=== PATIENT | female | born 1935 | race Caucasian/White ===

== ENCOUNTER 2018-09-19 12:19 | Outpatient (CLI) | payer MEDICARE, OTHER, SELFPAY ==
[2018-09-19] VITALS (7 sets, daily range): BP systolic 148–164; BP diastolic 61–90; PULSE 89–106; RESP 18–20; TEMP 36.9; O2SAT 96–100
--- NOTE | 2018-09-19 12:25 | DI.RAD.S_ITS ---
PROCEDURE: PAIN SI JOINT INJECTION INDICATIONS: SACROCOCCYGEAL DISORDER FINDINGS: Fluoroscopic spot filming was performed to verify placement of spinal needles at the right sacroiliac joint level(s), as labeled on the films. Appropriate location(s) of the needle tip(s) was confirmed by injection of iodinated contrast. Dictated by: Dante Belcher M.D. on 09/19/2018 at 14:48 Approved by: Dante Belcher M.D. on 09/19/2018 at 14:49
--- NOTE | 2018-09-19 13:04 | CM.MNRNOTE ---
pt refusing iv start, reassured, pt aggreed. voided before procedure. glucose checked 277. pt reporting eating at 1030am. pt arrived with bottle of colored water, and report sipping due to dm. rn and provider made aware.
--- NOTE | 2018-09-19 13:10 | PC.NURSE ---
pt reports, seen at the clinic yesterday for scratch on left lower ext. treated with antibiotic, pt denies fever,chills.
--- NOTE | 2018-09-19 13:43 | PC.NURSE ---
to procedure room via w/c. voided before procedure.
[2018-09-19] MEDS: MIDAZOLAM 5 MG/5 ML VIAL IV (13:50)
[2018-09-19] MEDS: BUPIVACAINE 0.5% (PF) VIAL 2 ML INJ (13:57)
[2018-09-19] MEDS: BETAMETHASONE 30 MG/5 ML MDV 12 MG INJ (13:57)
[2018-09-19] MEDS: IOPAMIDOL 15 ML VIAL 3 ML INJ (13:57)
--- NOTE | 2018-09-19 14:00 | PC.NURSE ---
pt tolerated procedure with 2mg versed. Pt able to get off the table with minimal assist. Transferred pt to pre procedure room via wheelchair for continued monitoring with Bhumi JIMENES.
--- NOTE | 2018-09-19 14:07 | P.PCN_ITS ---
Procedures Date/Time Date of procedure: 09/19/18 Time of procedure: 14:06 General Procedure description: PREOP Dx: Sacroiliac joint pain/DJD POST OP DX: Sacroiliac Joint Pain/DJD Procedures: Fluoroscopic guided contrast controlled right sacroiliac joint injection Physician: Steve Piña D.O. Indications: Patient is referred by for treatment of right sacroiliac joint DJD Description of procedure Fluoroscopic guided, contrast controlled right sacroiliac joint injection Following denial of allergies and review of potential side effects and complications, including, but not necessarily limited to, infection, allergic reaction, local tissue breakdown, temporary as well as permanent nerve injury, paralysis, stroke and possible , the patient indicated that they understood and agreed to proceed. An informed consent was signed by the patient, witnessed by a nurse, and placed in the patient's chart. Additionally, other treatment options including modalities, medications, and physical therapy were reviewed with the patient. After review of previous anaesthesic history and IV conscious sedation the patient was deemed safe to proceed with todays procedure with IV conscious sedation as ASA class II designation. Safety time-out was performed to confirm patient ID, procedure to be performed and site of procedure. IV sedation was accomplished with a combination of 3mg of Versed was administered by the RN after DO order, titrated to patient comfort during the course of the procedure while the patient remained responsive to all verbal commands In the prone position following sterile prep and drape of the pelvic region, the hyper lucency on in the inferior aspect of the sacroiliac joint was identified fluoroscopically the skin was anesthetized be a 25 gauge 1 eventual with approximately 2 cc of 1% lidocaine solution. At this point, a 22 gauge 3 in spinal needle was atraumatically introduced and advanced under fluoroscopic guidance into the inferior aspect of the right sacroiliac joint. Following negative aspiration, approximately 0.3 cc of Isovue-300 was injected confirming intra-articular placement without vascular uptake. Radiographic data, including multiple fluoroscopic views of the pelvis, reveals a spinal needle in the sacroiliac joint hyper lucent zone. Subsequent view show flow contrast tear superiorly and inferiorly within the joint capsule without vascular intrathecal uptake. At this point a total of 1 cc of 0.5% Marcaine was combined with 1 cc of 6mg of betamethasone was injected without incident. The procedure tolerated the procedure well without signs or symptoms of complic ations prior to transfer to the recovery area continued monitoring without incident. The patient was then transferred to the recovery area with a bur observed for an appropriate time after the injection. The patient reverted a vas score of 7 prior to the procedure and postprocedure vas of 1. Total fluoroscopy time: 22.7 sec Total conscious sedation time: 24 min Postop instructions The patient was provided with a pain like to continue to record the patient's response to the target specific procedure prior to the patient's follow-up visit with the referring physician. Additionally, specific post injection care instructions and a contact number to our office were provided if concerns arise regarding the possible complications associated with procedure are suspected. Steve Piña D.O. Complications: none
--- NOTE | 2018-09-19 16:27 | PC.NURSE ---
1406 rtr from procedure via w/c, arrived talkative, self transfer to chair, tolerating drinking and eating. friend at .
== END 2018-09-19 14:26 ==
LOC: RAD 12:24
PROVIDERS: PCP Physician Assistant; Visit Provider Physical Medicine & Rehabilitation
DX: M53.3 Sacrococcygeal disorders, not elsewhere classified (principal); M47.898 Other spondylosis, sacral and sacrococcygeal region; G89.29 Other chronic pain
CPT/HCPCS: 27096; 99152; J0702; J2250